=== PATIENT | male | born 1960 | race African-American/Black ===

== ENCOUNTER 2020-03-15 22:20 | Emergency (ER) | payer BC, OTHER ==
[2020-03-15 22:32] VITALS: BP 153/102; PULSE 81; TEMP 99.5; BMI 34.9
== END 2020-03-15 23:07 | disposition home or self-care (01) ==
LOC: FER 22:20
DX: S96.911A Strain of unspecified muscle and tendon at ankle and foot level, right foot, initial encounter (principal)
CPT/HCPCS: 73610-TC-RT-FY; 73630-TC-RT-FY; 99283-25